=== PATIENT | female | born 1975 | race African-American/Black ===

== ENCOUNTER 2018-11-16 19:29 | Emergency (ER) | payer BC ==
[~2018-11-16] VITALS: Ht 165.1 cm; Wt 125.6 kg
[~2018-11-16 19:29] MED LIST: CIPR500T94 PO; IBUP-1007 PO
[2018-11-16 20:07] VITALS: BP 152/73
[2018-11-16] MEDS ORDERED: VENTOLIN HFA18 GM INH (21:24)
[2018-11-16] MEDS ORDERED: ONDA4TAB7 PO (21:24)
[2018-11-16] MEDS ORDERED: BENZ100C PO (21:24)
--- NOTE | 2018-11-16 21:24 | PHYS DOC ---
Past Medical History Past Medical History: Anxiety, Diabetes-Type II, High Cholesterol, Hypertension , Other Additional Past Medical Histor: vitamin D def Past Surgical History: Cholecystectomy Alcohol Use: None Drug Use: None Adult General Chief Complaint Chief Complaint: COUGH HPI HPI Patient is a 43 year old female with a history of high cholesterol, anxiety, hypertension, diabetes type 2, who presents today complaining of a cough nonproductive in nature. Patient states the cough has been going on for 2 weeks , she states she was put on antibiotics 2 weeks ago for an ear infection and this cough. She states she completed the antibiotics and symptoms cleared out then 3 days ago symptoms resumed. Patient denies any fever. She states she sometimes coughs hard enough that she vomits or wets her pants. Denies any fever. Denies any nasal congestion. Patient cannot remember the name of the antibiotics. Review of Systems Review of Systems Constitutional: Denies fever or chills [] Eyes: Denies change in visual acuity, redness, or eye pain [] HENT: Denies nasal congestion or sore throat [] Respiratory: Reports cough, denies shortness of breath [] Cardiovascular: No additional information not addressed in HPI [] GI: Denies abdominal pain, nausea, vomiting, bloody stools or diarrhea [] : Denies dysuria or hematuria [] Musculoskeletal: Denies back pain or joint pain [] Integument: Denies rash or skin lesions [] Neurologic: Denies headache, focal weakness or sensory changes [] All other systems were reviewed and found to be within normal limits, except as documented in this note. Allergies Allergies Allergies Coded Allergies Type Severity Reaction Last Updated Verified No Known Drug Allergies 08/23/13 No Physical Exam Physical Exam Constitutional: Well developed, well nourished, no acute distress, non-toxic appearance. [] HENT: Normocephalic, atraumatic, bilateral external ears normal, oropharynx moist, no oral exudates, nose normal. [] Eyes: PERRLA, EOMI, conjunctiva normal, no discharge. [] Neck: Normal range of motion, no tenderness, supple, no stridor. [] Cardiovascular:Heart rate regular rhythm, no murmur [] Lungs & Thorax: Bilateral breath sounds clear to auscultation [] Abdomen: Bowel sounds normal, soft, no tenderness, no masses, no pulsatile masses. [] Skin: Warm, dry, no erythema, no rash. [] Back: No tenderness, no CVA tenderness. [] Extremities: No tenderness, no cyanosis, no clubbing, ROM intact, no edema. [] Neurologic: Alert and oriented X 3, normal motor function, normal sensory function, no focal deficits noted. [] Psychologic: Affect normal, judgement normal, mood normal. [] Current Patient Data Vital Signs Vital Signs Date Time Temp Pulse Resp B/P (MAP) Pulse Ox O2 Delivery O2 Flow Rate FiO2 11/16/18 20:07 98.2 94 16 152/73 (99) 98 Room Air 98.2 EKG EKG [] Radiology/Procedures Radiology/Procedures [] Course & Med Decision Making Course & Med Decision Making Pertinent Labs and Imaging studies reviewed. (See chart for details) This is a 43-year-old. Presenting to the ED today with a dry cough for 2 weeks. Patient was already on antibiotics 2 weeks ago which she completed a week ago. Symptoms had gone away, symptoms returned 3 days ago. Patient appears well. She is afebrile. Chest x-rays negative in the ED. Highly suspect her symptoms are viral. Discharged with albuterol inhaler, Tessalon Perles. Follow-up with primary care doctor in 1-2 weeks Josi Disclaimer Dragon Disclaimer This electronic medical record was generated, in whole or in part, using a voice recognition dictation system. Departure Departure Impression: Primary Impression: Acute viral bronchitis Disposition: HOME, SELF-CARE Condition: STABLE Referrals: NEYDA BUITRAGO DO (PCP) follow up in 1-2 weeks Patient Instructions: Acute Bronchitis, [id number] Additional Instructions: You were evaluated in the emergency room for a cough. We highly suspect your symptoms are viral or may be seasonal allergies. Consider taking Zyrtec every day. Take the prescribed medications. Follow-up with your doctor in 1-2 weeks Scripts Ondansetron Hcl (ZOFRAN) 4 Mg Tablet 1 TAB PO Q8HRS, #30 TAB Prov: MUTUNGA,LYNDSEY ECHOCARDIOGRAPHY RADIOLOGY TECHNOLOGIST 11/16/18 Benzonatate (TESSALON PERLE) 100 Mg Capsule 1 CAP PO TID, #30 CAP Prov: MUTUNGA,LYNDSEY ECHOCARDIOGRAPHY RADIOLOGY TECHNOLOGIST 11/16/18 Albuterol Sulfate (VENTOLIN HFA INHALER) 18 Gm Hfa.aer.ad 2 PUFF INH Q4HRS for FOR ASTHMA, #1 INHALER 0 Refills Prov: LYNDSEY CURIEL APRN 11/16/18 LYNDSEY CURIEL APRN Nov 16, 2018 21:24
--- NOTE | 2018-11-16 21:55 | RAD ---
EXAM: PA and Lateral Views of the Chest DATE: 11/16/2018 8:50 PM INDICATION: COUGH X 2 WEEKS PT STATES SHE HAD VOMIT SOMETIMES WHEN COUGH COMPARISON: 01/14/2012 FINDINGS: The heart is not enlarged. Mediastinal and hilar contours are normal. No focal parenchymal airspace opacity. No pleural effusion or pneumothorax. IMPRESSION: 1. No radiographic evidence for acute cardiopulmonary process. Electronically signed by: Vince Perdue MD (11/16/2018 9:52 PM) [facility]
== END 2018-11-16 21:46 | disposition home or self-care (01) ==
LOC: ER 19:29
DX: J20.8 Acute bronchitis due to other specified organisms (principal); B97.89 Other viral agents as the cause of diseases classified elsewhere; F41.9 Anxiety disorder, unspecified; E11.9 Type 2 diabetes mellitus without complications; E78.00 Pure hypercholesterolemia, unspecified; I10 Essential (primary) hypertension; Z90.49 Acquired absence of other specified parts of digestive tract
CPT/HCPCS: 71046; 99283